=== PATIENT | male | born 1960 | race African-American/Black ===

== ENCOUNTER 2018-01-15 09:50 | Emergency (ER) | payer OTHER ==
[~2018-01-15] VITALS: Ht 177.8 cm; Wt 114.0 kg
[~2018-01-15 09:50] MED LIST: AMLODIPINE; FERR-63; SIMVASTATIN
[2018-01-15] MEDS ORDERED: KETOROLAC 60MG/2ML VIAL IM ONE (11:00)
[2018-01-15] MEDS ORDERED: ACETAMINOPHEN 325MG TABLET PO ONE (11:00)
[2018-01-15 11:58] VITALS: BP 162/99
== END 2018-01-15 12:25 | disposition home or self-care (01) ==
LOC: ER 09:50
DX: S93.401A Sprain of unspecified ligament of right ankle, initial encounter (principal); E78.00 Pure hypercholesterolemia, unspecified; I10 Essential (primary) hypertension; Z88.0 Allergy status to penicillin; W01.0XXA Fall on same level from slipping, tripping and stumbling without subsequent striking against object, initial encounter; Y93.89 Activity, other specified; Y92.090 Kitchen in other non-institutional residence as the place of occurrence of the external cause; Y99.8 Other external cause status
CPT/HCPCS: 73610; 73630; 96372; 99283; J1885; L1830

== ENCOUNTER 2018-04-10 16:17 | Emergency (ER) | payer OTHER ==
[~2018-04-10] VITALS: Ht 177.8 cm; Wt 120.0 kg
[2018-04-10 16:32] VITALS: BP 160/92
== END 2018-04-10 21:00 | disposition left against medical advice (07) ==
LOC: ER 16:17
DX: Z53.21 Procedure and treatment not carried out due to patient leaving prior to being seen by health care provider (principal)

== ENCOUNTER 2025-01-16 20:10 | Inpatient (IN) | payer MEDICARE, OTHER ==
[~2025-01-16] VITALS: Ht 182.9 cm; Wt 113.2 kg
[2025-01-16 20:14] VITALS: O2SAT 98
[2025-01-16 22:55] LABS: BASOPHILS % 0.4 % (0.0-2.0); EOSINOPHILS % 1.9 % (0.0-5.0); HEMATOCRIT. 44.4 % (42.0-52.0); HEMOGLOBIN. 13.9 g/dL (14.0-18.0); LYMPHOCYTES % 12.1 % (20.0-50.0); MEAN PLATELET VOLUME 11.2 fl (7.4-10.4); MONOCYTES % 9.1 % (2.0-8.0); NEUTROPHILS % 76.5 % (40.0-76.0); PLATELET 175 x1000/uL (130-400); RED BLOOD CELL COUNT 4.25 mill/uL (4.7-6.1); RED CELL DISTRIBUTION WIDTH 15.2 % (11.6-14.6)
[2025-01-16 23:05] LABS: CREATININE 4.6 mg/dL (0.6-1.3); UREA NITROGEN BLOOD 94 mg/dL (9-23)
[2025-01-16 23:07] LABS: ASPARTATE AMINOTRANSFERASE 25 IU/L (<34); BILIRUBIN DIRECT 0.2 mg/dL (<=3.0); BILIRUBIN TOTAL 0.5 mg/dL (0.1-1.0); PROTEIN TOTAL 7.9 g/dL (6.0-8.3)
[2025-01-16 23:10] LABS: TROPONIN I HIGH SENSITIVITY 77 ng/L (3.0-53)
[2025-01-16] MEDS ORDERED: LEVOFLOXACIN 750MG PREMIX 150 ML IV ONE (23:45)
[2025-01-17] MEDS: ASPIRIN 325MG TABLET PO ONE
[2025-01-17 00:48] LABS: TROPONIN I HIGH SENSITIVITY 56 ng/L (3.0-53)
[2025-01-17] MEDS: SODIUM CHLORIDE 0.9% 1,000 ML IV ONE (01:34)
[2025-01-17] MEDS: ASPIRIN 325MG TABLET PO NR (01:42)
[2025-01-17 01:54] VITALS: BP 110/79; PULSE 107; RESP 20; TEMP 36.9; TEMP 36.9184; O2SAT 97
[2025-01-17 04:00] VITALS: BP 109/84; PULSE 103; RESP 18; TEMP 36.4; O2SAT 97
[2025-01-17] MEDS: DEXTROSE 5% WATER 1,000 ML IV SCH (06:04)
[2025-01-17] MEDS: SODIUM CHLORIDE 0.45% 1,000 ML IV ONE (06:45)
[2025-01-17] MEDS ORDERED: CEFTRIAXONE 1GM/50ML 50 ML IV SCH ×2 (06:45→09:00)
[2025-01-17] MEDS ORDERED: LEVOFLOXACIN 750MG PREMIX 150 ML IV SCH (07:00)
[2025-01-17 08:00] VITALS: BP 129/86; PULSE 90; RESP 20; TEMP 37; O2SAT 100
[2025-01-17] MEDS ORDERED: ENOXAPARIN 30MG/0.3ML SYR SUBCUT SCH (09:00)
[2025-01-17] MEDS: PANTOPRAZOLE SODIUM 40 MG/VIAL IV SCH (11:17)
[2025-01-17 11:22] LABS: BASOPHILS % 0.4 % (0.0-2.0); EOSINOPHILS % 2.4 % (0.0-5.0); HEMATOCRIT. 41.7 % (42.0-52.0); HEMOGLOBIN. 13.4 g/dL (14.0-18.0); LYMPHOCYTES % 12.3 % (20.0-50.0); MONOCYTES % 7.8 % (2.0-8.0); NEUTROPHILS % 77.1 % (40.0-76.0); RED BLOOD CELL COUNT 4.03 mill/uL (4.7-6.1); RED CELL DISTRIBUTION WIDTH 15.3 % (11.6-14.6)
[2025-01-17] MEDS: SODIUM CHLORIDE 0.45% 1,000 ML IV SCH (11:28)
[2025-01-17 11:44] LABS: CREATININE 4.5 mg/dL (0.6-1.3); TRIGLYCERIDE 129.0 mg/dL (0-150); UREA NITROGEN BLOOD 78.0 mg/dL (9-23)
[2025-01-17 11:45] LABS: LDL CHOLESTEROL 59.0 mg/dL (5-100)
[2025-01-17 11:46] LABS: PHOSPHORUS 4.6 mg/dL (2.5-4.9)
[2025-01-17 12:00] VITALS: BP 130/77; PULSE 94; RESP 18; TEMP 37.2; O2SAT 95
[2025-01-17 13:15] LABS: PLATELET 158 x1000/uL (130-400)
[2025-01-17] MEDS ORDERED: ENOXAPARIN 100MG/ML SYR SUBCUT SCH (14:00)
[2025-01-17] MEDS: DEXT 5%/0.45% NACL 1000ML 1,000 ML IV SCH (14:59)
[2025-01-17] MEDS: AMLODIPINE 5MG TABLET GT SCH (15:04)
[2025-01-17] MEDS: ENOXAPARIN 100MG/ML SYR SUBCUT SCH (15:06)
[2025-01-17 15:50] LABS: CLARITY URINE CLEAR (CLEAR); COLOR URINE DARK YELLOW (YELLOW); GLUCOSE URINE NEGATIVE (NEGATIVE); KETONES URINE TRACE (NEGATIVE); LEUKOCYTE ESTERASE URINE NEGATIVE (NEGATIVE); NITRITE URINE NEGATIVE (NEGATIVE); OCCULT BLOOD URINE NEGATIVE (NEGATIVE); PH URINE 5.0 (4.5-8.0); PROTEIN URINE 3+ (NEGATIVE); SPECIFIC GRAVITY URINE 1.025 (1.005-1.030); UROBILINOGEN URINE 0.2 E.U./dL (0.2-1.0)
[2025-01-17 16:00] VITALS: BP 116/75; PULSE 95; RESP 18; TEMP 36.9; O2SAT 96
[2025-01-17 16:07] LABS: SODIUM URINE RANDOM 18 mEq/L
[2025-01-17 16:14] LABS: OSMOLALITY URINE 594 mOsm/kg (500-850)
[2025-01-17 18:26] LABS: BACTERIA URINE 1+; RBC URINE NONE SEEN /hpf (0-2); SQUAMOUS EPITHELIAL CELL URINE FEW /lpf (RARE/1+); WBC URINE 0-2 /hpf (0-2)
[2025-01-17 20:00] VITALS: BP 117/74; PULSE 96; RESP 20; TEMP 36.4; O2SAT 84
[2025-01-17] MEDS: ATORVASTATIN CALCIUM 40MG TABLET PO SCH (21:20)
[2025-01-17] MEDS ORDERED: PIPERACILLIN/TAZO 3.375G/50ML 50 ML IV SCH (22:00)
[2025-01-17 23:58] LABS: TROPONIN I HIGH SENSITIVITY 54 ng/L (3.0-53)
[2025-01-18] VITALS: BP 127/80; PULSE 95; RESP 16; TEMP 38.1; O2SAT 95
[2025-01-18 00:01] LABS: INR 1.1
[2025-01-18 04:00] VITALS: BP 120/78; PULSE 95; RESP 18; TEMP 37.8; O2SAT 96
[2025-01-18 06:55] LABS: TROPONIN I HIGH SENSITIVITY 50 ng/L (3.0-53)
[2025-01-18] MEDS ORDERED: VANCOMYCIN 1000MG/250ML 250 ML IV SCH (07:30)
[2025-01-18 08:00] VITALS: BP 108/76; PULSE 94; RESP 14; TEMP 36.3; O2SAT 98
[2025-01-18] MEDS ORDERED: LEVOFLOXACIN 500MG PREMIX 100 ML IV SCH (09:00)
[2025-01-18 09:40] LABS: CREATININE 4.2 mg/dL (0.6-1.3); UREA NITROGEN BLOOD 71 mg/dL (9-23)
[2025-01-18 09:42] LABS: PHOSPHORUS 3.8 mg/dL (2.5-4.9)
[2025-01-18] MEDS: LEVOFLOXACIN 750MG PREMIX 150 ML IV SCH (11:00)
[2025-01-18] MEDS: VANCOMYCIN 2GM PMX (XELLIA) 400 ML IV SCH (11:41)
[2025-01-18] MEDS: DEXTROSE 5% WATER 1,000 ML IV SCH (11:50)
[2025-01-18 12:00] VITALS: BP 116/75; PULSE 87; RESP 19; TEMP 37.1; O2SAT 97
[2025-01-18 16:00] VITALS: BP 109/70; PULSE 85; RESP 18; TEMP 36.2; O2SAT 97
[2025-01-18 16:49] LABS: BASOPHILS % 0.4 % (0.0-2.0); EOSINOPHILS % 5.8 % (0.0-5.0); HEMATOCRIT. 37.9 % (42.0-52.0); HEMOGLOBIN. 11.8 g/dL (14.0-18.0); LYMPHOCYTES % 17.8 % (20.0-50.0); MEAN PLATELET VOLUME 11.4 fl (7.4-10.4); MONOCYTES % 11.9 % (2.0-8.0); NEUTROPHILS % 64.1 % (40.0-76.0); PLATELET 125 x1000/uL (130-400); RED BLOOD CELL COUNT 3.63 mill/uL (4.7-6.1); RED CELL DISTRIBUTION WIDTH 15.5 % (11.6-14.6)
[2025-01-18 16:51] LABS: TROPONIN I HIGH SENSITIVITY 49 ng/L (3.0-53)
[2025-01-18 20:00] VITALS: BP 106/74; PULSE 89; RESP 18; TEMP 36.7; O2SAT 92
[2025-01-19] VITALS: BP 113/80; PULSE 88; RESP 18; TEMP 36.6; O2SAT 99
[2025-01-19 04:00] VITALS: BP 108/77; PULSE 82; RESP 18; TEMP 36.5; O2SAT 95
[2025-01-19 06:22] LABS: BASOPHILS % 0.4 % (0.0-2.0); EOSINOPHILS % 6.5 % (0.0-5.0); HEMATOCRIT. 37.2 % (42.0-52.0); HEMOGLOBIN. 11.9 g/dL (14.0-18.0); LYMPHOCYTES % 12.7 % (20.0-50.0); MEAN PLATELET VOLUME 11.6 fl (7.4-10.4); MONOCYTES % 12.7 % (2.0-8.0); NEUTROPHILS % 67.7 % (40.0-76.0); PLATELET 116 x1000/uL (130-400); RED BLOOD CELL COUNT 3.60 mill/uL (4.7-6.1); RED CELL DISTRIBUTION WIDTH 15.3 % (11.6-14.6)
[2025-01-19 06:27] LABS: CREATININE 3.5 mg/dL (0.6-1.3); UREA NITROGEN BLOOD 55.0 mg/dL (9-23)
[2025-01-19 08:00] VITALS: BP 119/78; PULSE 82; RESP 18; TEMP 36.7; O2SAT 98
[2025-01-19] MEDS: FAMOTIDINE 20MG/2ML VIAL IV SCH (08:27)
[2025-01-19] MEDS: ASPIRIN 81MG TABLET PEG SCH (08:27)
[2025-01-19 11:20] LABS: INFLUENZA TYPE A Presumptive Negative (Pres. Neg.)
[2025-01-19 11:21] LABS: INFLUENZA TYPE B Presumptive Negative (Pres. Neg.); RESPIRATORY SYNCYTIAL VIRUS Not Detected (Not Detectd)
[2025-01-19 12:15] VITALS: BP 112/79; PULSE 88; RESP 18; TEMP 36.6; O2SAT 97
[2025-01-19 16:00] VITALS: BP 118/88; PULSE 85; RESP 20; TEMP 36.3; O2SAT 98
[2025-01-19 20:18] VITALS: BP 109/73; PULSE 80; RESP 20; TEMP 37.3; O2SAT 97
[2025-01-19] MEDS: MUPIROCIN 2% OINT 15GM NS SCH (21:28)
[2025-01-20 00:36] VITALS: BP 105/62; PULSE 84; RESP 18; TEMP 37.2; O2SAT 98
[2025-01-20 04:00] VITALS: BP 117/78; PULSE 83; RESP 20; TEMP 37.1; O2SAT 98
[2025-01-20 08:11] VITALS: BP 119/77; PULSE 80; RESP 18; TEMP 36.2; O2SAT 97
[2025-01-20 11:47] VITALS: BP 103/78; PULSE 89; RESP 19; TEMP 36; O2SAT 98
[2025-01-20 15:08] LABS: BASOPHILS % 0.3 % (0.0-2.0); EOSINOPHILS % 7.3 % (0.0-5.0); HEMATOCRIT. 37.2 % (42.0-52.0); HEMOGLOBIN. 11.9 g/dL (14.0-18.0); LYMPHOCYTES % 14.0 % (20.0-50.0); MEAN PLATELET VOLUME 11.8 fl (7.4-10.4); MONOCYTES % 10.7 % (2.0-8.0); NEUTROPHILS % 67.7 % (40.0-76.0); PLATELET 143 x1000/uL (130-400); RED BLOOD CELL COUNT 3.61 mill/uL (4.7-6.1); RED CELL DISTRIBUTION WIDTH 15.0 % (11.6-14.6)
[2025-01-20 15:23] LABS: CREATININE 3.1 mg/dL (0.6-1.3); UREA NITROGEN BLOOD 43 mg/dL (9-23)
[2025-01-20 15:25] LABS: PHOSPHORUS 3.6 mg/dL (2.5-4.9)
[2025-01-20 15:56] VITALS: BP 123/69; PULSE 86; RESP 20; TEMP 36.3; O2SAT 97
[2025-01-20] MEDS: VANCOMYCIN 1.25GM/250ML IV SCH (18:05)
[2025-01-20 19:49] VITALS: BP 125/70; PULSE 112; RESP 20; TEMP 37.3; O2SAT 96
[2025-01-20] MEDS: METOPROLOL TARTRATE 25MG TABLET GT SCH (23:07)
[2025-01-21] VITALS: BP 123/83; PULSE 87; RESP 20; TEMP 36.6; O2SAT 96
[2025-01-21 04:00] VITALS: BP 134/86; PULSE 90; RESP 20; TEMP 36.7; O2SAT 99
[2025-01-21 08:00] VITALS: BP 119/79; PULSE 83; RESP 18; TEMP 37.9; O2SAT 99
[2025-01-21] MEDS ORDERED: METO25TA6 GT (11:08)
[2025-01-21] MEDS ORDERED: MUPI22OI2 NS (11:08)
[2025-01-21] MEDS ORDERED: LIP40 PO (11:08)
[2025-01-21] MEDS ORDERED: ASPI-1160 PEG (11:08)
[2025-01-21 12:00] VITALS: BP 114/81; PULSE 80; RESP 18; TEMP 36.2; O2SAT 96
[2025-01-21 16:00] VITALS: BP 135/80; PULSE 87; RESP 16; TEMP 36.2; O2SAT 93
[2025-01-21 20:00] VITALS: BP 106/71; PULSE 89; RESP 20; TEMP 36.9; O2SAT 100
[2025-01-22] VITALS: BP 110/68; PULSE 90; RESP 20; TEMP 36.8; O2SAT 98
[2025-01-22 04:00] VITALS: BP 93/57; PULSE 81; RESP 19; TEMP 36.4; O2SAT 97
[2025-01-22 08:07] VITALS: BP 117/84; PULSE 88; RESP 20; TEMP 36.3; O2SAT 90
[2025-01-22] MEDS: CARVEDILOL 3.125 MG TABLET GT SCH (09:05)
[2025-01-22 09:17] LABS: BASOPHILS % 0.6 % (0.0-2.0); EOSINOPHILS % 8.0 % (0.0-5.0); HEMATOCRIT. 40.5 % (42.0-52.0); HEMOGLOBIN. 13.0 g/dL (14.0-18.0); LYMPHOCYTES % 13.3 % (20.0-50.0); MEAN PLATELET VOLUME 11.3 fl (7.4-10.4); MONOCYTES % 10.8 % (2.0-8.0); NEUTROPHILS % 67.3 % (40.0-76.0); PLATELET 149 x1000/uL (130-400); RED BLOOD CELL COUNT 3.94 mill/uL (4.7-6.1); RED CELL DISTRIBUTION WIDTH 15.2 % (11.6-14.6)
[2025-01-22 09:39] LABS: CREATININE 2.9 mg/dL (0.6-1.3); UREA NITROGEN BLOOD 29 mg/dL (9-23)
[2025-01-22 11:35] VITALS: BP 101/65; PULSE 88; RESP 18; TEMP 36.2; O2SAT 97
[2025-01-22 15:37] VITALS: BP 114/79; PULSE 87; RESP 18; TEMP 35.9; O2SAT 99
[2025-01-22] MEDS: VANCOMYCIN 1.25GM/250ML 250 ML IV SCH (17:54)
[2025-01-22 20:00] VITALS: BP 131/86; PULSE 81; RESP 20; TEMP 36.8; O2SAT 98
[2025-01-23 00:14] VITALS: BP 95/62; PULSE 89; RESP 18; TEMP 36.6; O2SAT 98
[2025-01-23 04:17] VITALS: BP 101/75; PULSE 91; RESP 19; TEMP 36.2; O2SAT 97
[2025-01-23 08:00] VITALS: BP 107/67; PULSE 86; RESP 18; TEMP 37; O2SAT 98
[2025-01-23] MEDS: LISINOPRIL 2.5MG TABLET PO SCH (08:58)
[2025-01-23 11:37] VITALS: BP 107/67; PULSE 86; RESP 18; TEMP 98.6
[2025-01-23 12:00] VITALS: BP 110/69; PULSE 84; RESP 18; TEMP 37.1; O2SAT 98
[2025-01-23] MEDS ORDERED: ATOR40TA70 MT (13:39)
[2025-01-23] MEDS ORDERED: COR3 GT (13:39)
[2025-01-23] MEDS ORDERED: MUPI1OIN4 TP (13:39)
[2025-01-23] MEDS ORDERED: LISI2.5T47 PO (13:39)
[2025-01-23] MEDS ORDERED: ASPI-1079 PO (13:39)
[2025-01-23] MEDS: ACETAMINOPHEN 650MG/20.3ML UDC GT PRN (15:37)
[2025-01-23 16:00] VITALS: BP 108/67; TEMP 37
== END 2025-01-23 17:10 | disposition home or self-care (01) | DRG 871 ==
LOC: ER 20:10 → 7WST 01-17 00:02 → EDBEDREQ 01-17 00:16 → EDBEDREQDT 01-17 00:16 → EDBEDREQTM 01-17 00:16 → ENRESERV 01-17 01:05
PROVIDERS: ADMIT Hospitalist; ATTEND Hospitalist
DX: A41.9 Sepsis, unspecified organism (principal); I21.A1 Myocardial infarction type 2; R65.21 Severe sepsis with septic shock; E87.20 Acidosis, unspecified; I82.411 Acute embolism and thrombosis of right femoral vein; N17.9 Acute kidney failure, unspecified; I82.431 Acute embolism and thrombosis of right popliteal vein; I47.20 Ventricular tachycardia, unspecified; I50.20 Unspecified systolic (congestive) heart failure; I13.0 Hypertensive heart and chronic kidney disease with heart failure and stage 1 through stage 4 chronic kidney disease, or unspecified chronic kidney disease; I69.354 Hemiplegia and hemiparesis following cerebral infarction affecting left non-dominant side; N18.30 Chronic kidney disease, stage 3 unspecified; D64.9 Anemia, unspecified; E66.01 Morbid (severe) obesity due to excess calories; G93.89 Other specified disorders of brain; F32.A Depression, unspecified; E87.0 Hyperosmolality and hypernatremia; I42.9 Cardiomyopathy, unspecified; E83.42 Hypomagnesemia; E86.9 Volume depletion, unspecified; Z74.01 Bed confinement status; I49.40 Unspecified premature depolarization; I49.3 Ventricular premature depolarization; E78.5 Hyperlipidemia, unspecified; G47.33 Obstructive sleep apnea (adult) (pediatric); Z22.322 Carrier or suspected carrier of Methicillin resistant Staphylococcus aureus; Z87.820 Personal history of traumatic brain injury; Z88.0 Allergy status to penicillin; Z68.38 Body mass index [BMI] 38.0-38.9, adult; Z93.1 Gastrostomy status
CPT/HCPCS: 36415; 71045; 76770; 80048; 80061; 80076; 80202; 81003; 82550; 82962; 83036; 83605; 83735; 83880; 83930; 83935; 84100; 84145; 84300; 84443; 84484; 85025; 87420; 87426; 87804; 93005; 93306; 93970; 97162; 97166; 99291; A4606; J0696; J1308; J1650; J1956; J2470; J3373; J7030; J7070